=== PATIENT | female | born 1975 | race Caucasian/White ===

== ENCOUNTER → 2017-07-25 | Outpatient (CLI) | payer BC ==
--- NOTE | 2017-07-25 11:15 | DIAGNOSTIC IMAGING REPORT ---
CHEST 2 VIEWS ROUTINE CLINICAL HISTORY: Cough. Hemoptysis. COMPARISON STUDY: 03/12/2011 FINDINGS: The cardiac and mediastinal contours are normal. There is no evidence of focal pulmonary consolidation. There is no evidence of failure. No pleural effusions are visualized.[ IMPRESSION: No active disease in the chest. Electronically signed by: Gigi Jasmine M.D. 07/25/2017 11:14 AM Dictated Date/Time: 07/25/2017 11:14 AM
== END | disposition home or self-care (01) ==
LOC: C.RADPV 10:56
PROVIDERS: ATTEND Family Medicine Adult Medicine
DX: R04.2 Hemoptysis (principal)